=== PATIENT | male | born 1985 ===

== ENCOUNTER 2017-04-10 11:40 | Emergency (ER) | payer OTHER ==
[2017-04-10 11:50] VITALS: BP 142/85; RESP 18; TEMP 98.3
--- NOTE | 2017-04-10 13:09 | C.PDOC ---
History Of Present Illness 32 y/o male presents to ED with complaints of abdominal pain for 2 weeks with associated loose stool. Patient states he was in [place] and drank tap water. Patient was seen by Doctor, has paperwork of lab work and was given medication that he finished 5 days ago. Patient states pain had resolved but came back 4 days ago more severe than before which prompted visit to ED. Patient denies fever, chills, back pain, UTI symptoms or any other complaints at this time. Chief Complaint (Nursing): Abdominal Pain History Per: Patient History/Exam Limitations: no limitations Onset/Duration Of Symptoms: Days Current Symptoms Are (Timing): Still Present Location Of Pain/Discomfort: Diffuse Quality Of Discomfort: Stabbing Past Medical History Reviewed: Historical Data, Nursing Documentation, Vital Signs Vital Signs: Last Vital Signs Temp 98.3 F 04/10/17 11:47 Pulse 89 04/10/17 13:30 Resp 18 04/10/17 13:30 BP 142/85 04/10/17 11:47 Pulse Ox 99 04/10/17 13:50 - Medical History PMH: Kidney Stones Surgical History: No Surg Hx Family History: States: No Known Family Hx - Social History Hx Alcohol Use: Yes Hx Substance Use: No - Immunization History Hx Influenza Vaccination: Yes Hx Pneumococcal Vaccination: No Review Of Systems Except As Marked, All Systems Reviewed And Found Negative. Constitutional: Negative for: Fever, Chills Gastrointestinal: Positive for: Abdominal Pain. Negative for: Nausea, Vomiting , Diarrhea Genitourinary: Negative for: Dysuria, Hematuria Musculoskeletal: Negative for: Back Pain Physical Exam - Physical Exam Appears: Non-toxic, No Acute Distress Skin: Warm, Dry, No Rash Head: Normacephalic Oral Mucosa: Moist Neck: Normal ROM, Supple Cardiovascular: Rhythm Regular Respiratory: Normal Breath Sounds, No Rales, No Rhonchi, No Wheezing Gastrointestinal/Abdominal: Bowel Sounds, Soft, Tenderness (Diffuse abdominal), No Guarding, No Rebound Back: No CVA Tenderness Extremity: Normal ROM, Capillary Refill (<2 seconds) Neurological/Psych: Oriented x3 ED Course And Treatment O2 Sat by Pulse Oximetry: 99 (RA) Pulse Ox Interpretation: Normal Disposition - Disposition Referrals: [facility] [Outside] Disposition: HOME/ ROUTINE Disposition Time: 13:09 Condition: FAIR Additional Instructions: return for worsening ab pain,fever or vomiting Prescriptions: Atropine/Diphenoxylate [Lonox 0.025 MG-2.5 MG] 1 tab PO Q6 #20 tab Metronidazole [Flagyl] 500 mg PO TID #30 tablet Forms: [facility] (Macedonian), Work Excuse - Clinical Impression Clinical Impression: Colitis, amebic, nondysenteric - Scribe Statement The provider has reviewed the documentation as recorded by the Abeibchapin Allen All medical record entries made by the Abeibchapin were at my direction and personally dictated by me. I have reviewed the chart and agree that the record accurately reflects my personal performance of the history, physical exam, medical decision making, and the department course for this patient. I have also personally directed, reviewed, and agree with the discharge instructions and disposition.
[2017-04-10 13:30] VITALS: PULSE 89
[2017-04-10 13:36] VITALS: O2SAT 99
== END 2017-04-10 13:30 | disposition home or self-care (01) ==
LOC: C.ER 11:40
DX: K52.9 Noninfective gastroenteritis and colitis, unspecified (principal); A06 Amebiasis